=== PATIENT | male | born 1970 | race Asian ===

== ENCOUNTER 2023-10-30 12:48 | Outpatient (CLI) | payer OTHER ==
[2023-10-30] MEDS ORDERED: Magnevist 469MG/ML 20 ML VIAL ONE (13:02)
== END 2023-10-30 12:49 | disposition home or self-care (01) ==
LOC: CSHMRI 12:48
PROVIDERS: ATTEND Neurological Surgery
DX: M51.16 Intervertebral disc disorders with radiculopathy, lumbar region (principal); M51.17 Intervertebral disc disorders with radiculopathy, lumbosacral region; Z98.890 Other specified postprocedural states; M48.061 Spinal stenosis, lumbar region without neurogenic claudication; G96.198 Other disorders of meninges, not elsewhere classified
CPT/HCPCS: 72158